=== PATIENT | male | born 2000 | race Caucasian/White ===

== ENCOUNTER 2020-06-29 18:27 | Emergency (ER) | payer MEDICAID ==
[2020-06-29] MEDS ORDERED: Bacitracin Oint 1 GM U/D Packet TOP ONE (19:01)
--- NOTE | 2020-06-29 19:02 | EDM.PDOC ---
ED HPI GENERAL MEDICAL PROBLEM - General Chief Complaint: Laceration Stated Complaint: ROPE BURN Time Seen by Provider: 06/29/20 19:00 Source of Information: Reports: Patient, RN, RN Notes Reviewed - History of Present Illness INITIAL COMMENTS - FREE TEXT/NARRATIVE: injury knee just prior to arrival causing 1 cm laceration just below right knee Onset: Today, Sudden Onset Date: 06/29/20 Onset Time: 18:00 Duration: Minutes:, Constant Location: Reports: Lower Extremity, Right Quality: Reports: Sharp Severity: Mild Improves with: Reports: None Worsens with: Reports: None Context: Reports: Trauma Associated Symptoms: Reports: No Other Symptoms - Related Data Allergies Allergy/AdvReac Type Severity Reaction Status Date / Time No Known Allergies Allergy Verified 06/29/20 18:51 Home Meds: Home Meds NK [No Known Home Meds] 06/29/20 [History] Past Medical History - Past Surgical History GI Surgical History: Reports: Hernia Repair/Other Social & Family History - Tobacco Use Smoking Status *Q: Never Smoker - Caffeine Use Caffeine Use: Reports: Coffee, Soda - Recreational Drug Use Recreational Drug Use: No Review of Systems - Review of Systems Review Of Systems: See Below Constitutional: Reports: No Symptoms Eyes: Reports: No Symptoms Ears: Reports: No Symptoms Nose: Reports: No Symptoms Mouth/Throat: Reports: No Symptoms Respiratory: Reports: No Symptoms Cardiovascular: Reports: No Symptoms GI/Abdominal: Reports: No Symptoms Genitourinary: Reports: No Symptoms Musculoskeletal: Reports: No Symptoms Skin: Reports: Lesions (cut below right knee - cut the area on ski line rope) Neurological: Reports: No Symptoms Psychiatric: Reports: No Symptoms ED EXAM, GENERAL - Physical Exam Exam: See Below Exam Limited By: No Limitations General Appearance: Alert, WD/WN, No Apparent Distress Respiratory/Chest: No Respiratory Distress, Lungs Clear, Normal Breath Sounds Cardiovascular: Normal Peripheral Pulses, Regular Rate, Rhythm, No Edema, No Gallop GI/Abdominal: Normal Bowel Sounds, Soft, Non-Tender Extremities: Normal Range of Motion, Non-Tender, No Pedal Edema, Normal Capillary Refill Neurological: Alert, Oriented, Normal Cognition, Normal Reflexes Psychiatric: Normal Affect, Normal Mood Skin Exam: Warm, Dry, Normal Color, No Rash, Wound/Incision (2cm laceration right eaton just below ). No: Intact Lymphatic: No Adenopathy ED TRAUMA EXTREMITY PROCEDURES - Laceration/Wound Repair Right Knee Lac/Wound Length In cm: 2 Appearance: Subcutaneous, Linear, Clean Distal NVT: Neuro & Vascular Intact, No Tendon Injury Anesthetic Type: Local Local Anesthesia - Lidocaine (Xylocaine): 1% Plain Local Anesthetic Volume: 2cc Skin Prep: Chlorhexidine (Hibiciens) Saline Irrigation (cc's): 30 Exploration/Debridement/Repair: Wound Explored, In a Bloodless Field, Explored to Base, No Foreign Material Found Closed With: Sutures Suture Size: 3-0 # of Sutures: 4 Suture Type: Prolene Sterile Dressing Applied: Nurse Tetanus Status Addressed: Yes Complications: No Progress/Comments: Pt consented to repair of laceration. pt tolerated procedure without difficulty. Pt has cms distal to the incision post repair. Course - Vital Signs Last Recorded V/S: Last Vital Signs Temp 36.8 C 06/29/20 18:54 Pulse 75 06/29/20 18:54 Resp 16 06/29/20 18:54 BP 133/67 06/29/20 18:54 Pulse Ox 95 06/29/20 18:54 - Orders/Labs/Meds Meds: Medications Discontinued Medications Generic Name Dose Route Start Last Admin Trade Name Freq PRN Reason Stop Dose Admin Bacitracin 1 dose 06/29/20 19:01 06/29/20 20:06 Bacitracin Oint 1 Gm TOP 06/29/20 19:02 1 dose ONETIME ONE Administration Lidocaine HCl 5 ml 06/29/20 18:59 06/29/20 20:06 Xylocaine-Mpf 1% INJECT 06/29/20 19:00 5 ml ONETIME ONE Administration - Re-Assessments/Exams Free Text/Narrative Re-Assessment/Exam: 06/29/20 21:02 Post repair of laceration. Pt denies pain and has good cms distal to the laceration. Pt instructed in wound care and sxs of infection to report if they occur. 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 He would like to address the Tetanus shot with his primary care provider when he has his well physical next week. Departure - Departure Time of Disposition: 21:14 Disposition: Home, Self-Care 01 Condition: Good Clinical Impression: Laceration, Contusion of knee - Discharge Information *PRESCRIPTION DRUG MONITORING PROGRAM REVIEWED*: Not Applicable *COPY OF PRESCRIPTION DRUG MONITORING REPORT IN PATIENT STEPHEN: Not Applicable Instructions: Laceration Care, Adult, [id number] Referrals: PCP,None [Primary Care Provider] - Forms: ED Department Discharge Additional Instructions: Followup with primary care provider in 10 days for removal of sutures. Keep area clean and dry. Avoid mc water until healed. May shower Sepsis Event Note (ED) - Evaluation Sepsis Screening Result: No Definite Risk - Focused Exam Vital Signs: Vital Signs Temp Pulse Resp BP Pulse Ox 06/29/20 18:54 36.8 C 75 16 133/67 95 06/29/20 18:50 36.8 C 75 16 133/67 95
== END 2020-06-29 21:14 | disposition home or self-care (01) ==
LOC: JP.ED 18:27 → EDSEX 18:27 → JP.ED 21:14
DX: S81.011A Laceration without foreign body, right knee, initial encounter (principal); X58.XXXA Exposure to other specified factors, initial encounter
CPT/HCPCS: 12001; 99282; J2001